=== PATIENT | female | born 1935 | race Caucasian/White ===

== ENCOUNTER 2017-05-27 12:54 | Emergency (ER) | payer MEDICARE ==
[~2017-05-27] VITALS: Ht 157.4 cm; Wt 63.5 kg
[2017-05-27 14:41] LABS: BASO # 0.1 10*3/uL (0.0-0.1); BASO % 0.4 % (0.0-1.0); EOS # 0.2 10*3/uL (0.0-0.4); EOS % 1.2 % (1.0-4.0); HEMATOCRIT 33.1 % (37.0-47.0); HEMOGLOBIN 10.5 g/dl (12.0-16.0); LYMPH # 1.2 10*3/uL (1.3-4.4); LYMPH % 7.4 % (27.0-41.0); MEAN CELL VOLUME 97.9 fl (81.0-99.0); MEAN CORPUSCULAR HGB 31.1 pg (27.0-31.0); MEAN CORPUSCULAR HGB CONC 31.7 g/dl (33.0-37.0); MEAN PLATELET VOLUME 9.3 fl (9.6-12.3); MONO # 1.3 10*3/uL (0.1-1.0); MONO % 7.9 % (3.0-9.0); NEUT # 13.2 10*3/uL (2.3-7.9); NEUT % 82.4 % (47.0-73.0); PLATELET COUNT AUTOMATED 279 10*3/uL (130-400); RED BLOOD COUNT 3.38 10*6/uL (4.10-5.10); RED CELL DISTRI WIDTH 12.9 % (0-14.5)
[2017-05-27 14:49] LABS: ACT PARTIAL THROMBO TIME 25.5 SECONDS (20.8-31.5)
[2017-05-27 14:52] LABS: BUN 23 mg/dl (7-24); CHLORIDE 107 mmol/L (98-107); POTASSIUM 3.7 mmol/L (3.5-5.1); SODIUM 141 mmol/L (136-145)
[2017-05-27 17:28] VITALS: BP 140/78
== END 2017-05-27 18:33 | disposition short-term general hospital (02) ==
LOC: ED 12:54
PROVIDERS: Emergency Medicine
DX: S72.012A Unspecified intracapsular fracture of left femur, initial encounter for closed fracture (principal); S42.412A Displaced simple supracondylar fracture without intercondylar fracture of left humerus, initial encounter for closed fracture; W18.09XA Striking against other object with subsequent fall, initial encounter; Y93.01 Activity, walking, marching and hiking; Y92.241 Library as the place of occurrence of the external cause; Y99.8 Other external cause status

== ENCOUNTER 2019-06-25 11:43 | Inpatient (IN) | payer MEDICARE, MEDICAID ==
[~2019-06-25] VITALS: Ht 157.4 cm; Wt 84.9 kg
[2019-06-25] VITALS (12 sets, daily range): BP systolic 100–134; BP diastolic 38–93
[~2019-06-25 11:43] MED LIST: PREDNISONE10 M1 PO
[2019-06-25 12:21] LABS: BASO % 0.4 % (0.0-1.0); EOS # 0.1 10*3/uL (0.0-0.4); EOS % 0.9 % (1.0-4.0); HEMATOCRIT 34.1 % (37.0-47.0); HEMOGLOBIN 10.2 g/dl (12.0-16.0); LYMPH # 1.7 10*3/uL (1.3-4.4); LYMPH % 15.7 % (27.0-41.0); MEAN CELL VOLUME 102.4 fl (81.0-99.0); MEAN CORPUSCULAR HGB 30.6 pg (27.0-31.0); MEAN CORPUSCULAR HGB CONC 29.9 g/dl (33.0-37.0); MEAN PLATELET VOLUME 9.3 fl (9.6-12.3); MONO # 1.1 10*3/uL (0.1-1.0); MONO % 10.5 % (3.0-9.0); NEUT # 7.6 10*3/uL (2.3-7.9); NEUT % 72.1 % (47.0-73.0); PLATELET COUNT AUTOMATED 323 10*3/uL (130-400); RED BLOOD COUNT 3.33 10*6/uL (4.10-5.10); RED CELL DISTRI WIDTH 13.1 % (0-14.5); WHITE BLOOD COUNT 10.5 10*3/uL (4.8-10.8)
[2019-06-25 12:32] LABS: ACT PARTIAL THROMBO TIME 30.5 SECONDS (20.0-32.1); INTERNATIONAL NORM RATIO 1.3 (2.0-3.5)
--- NOTE | 2019-06-25 12:36 | NUR ---
PT DENIES NEED TO URINE AND DECLINES TO TRY. SHE DENIES URINARY COMPLAINTS.
[2019-06-25 12:39] LABS: ALBUMIN 3.3 gm/dl (3.1-4.5); ALKALINE PHOSPHATASE 68 U/L (45-117); BUN 28 mg/dl (7-24); CHLORIDE 106 mmol/L (98-107); POTASSIUM 3.9 mmol/L (3.5-5.1); SGOT/AST 11 IU/L (3-35); SGPT/ALT 12 U/L (12-78); SODIUM 139 mmol/L (136-145); TOTAL PROTEIN 6.6 gm/dL (6.4-8.2)
[2019-06-25 12:44] LABS: TROPONIN I < 0.015 ng/ml (<0.045)
--- NOTE | 2019-06-25 12:51 | NUR ---
PULSE IMPROVED FROM 142 TO 93 ON BEDSIDE MONITOR. BP STABLE. NO CHANGE IN PT CONDITION OR COMPLAINT.
--- NOTE | 2019-06-25 13:00 | NUR ---
PT REFUSES TO DISROBE UNTIL ARRIVAL AT HER ADMISSION BED. CHECKED FOR WOUNDS, NONE OBSERVED, CLOTHING REPLACED. SOCKS REMOVED, NO WOUNDS ON FEET.
--- NOTE | 2019-06-25 13:59 | NUR ---
BP REMAINS STABLE AND WITHIN NORMAL LIMITS. PULSE HAD BEEN BETWEEN 90-100 HAS NOW RETURNED TO INITIAL RATE AROUND 140. PROVIDER MADE AWARE, VERBAL ORDER TO TITRATE CARDIZEM TO 10MG DRIP, NO SECOND BOLUS. DONE.
--- NOTE | 2019-06-25 15:00 | NUR ---
PULSE REMAINS ELEVATED DESPITE CARDIZEM TO 10MG DRIP. PROVIDER AWARE.
[2019-06-25] MEDS ORDERED: Lopressor25 MG PO (15:51)
[2019-06-25] MEDS ORDERED: LOPRESSOR100 M1 PO (15:51)
[2019-06-25] MEDS ORDERED: XOPENEX1.25 MG/3 INH (15:52)
[2019-06-25] MEDS ORDERED: BUSPAR5 MG PO (15:53)
[2019-06-25] MEDS ORDERED: COUGH SYRU100 MG/51 PO (15:53)
[2019-06-25] MEDS ORDERED: RIVASTIGMINE TAR6 M1 PO (15:54)
[2019-06-25] MEDS ORDERED: VITAMIN D32000 UNIT PO (15:54)
[2019-06-25] MEDS ORDERED: OMEPRAZOLE40 MG PO (15:54)
[2019-06-25] MEDS ORDERED: GLUCOPHAGE500 M1 PO (15:55)
[2019-06-25] MEDS ORDERED: SYNTHROID25 MCG PO (15:55)
[2019-06-25] MEDS ORDERED: NAMENDA XR28 M1 PO (15:56)
[2019-06-25] MEDS ORDERED: TYLENOL325 M2 PO (15:56)
[2019-06-25] MEDS ORDERED: OYSTER SHELL C1 EAC3 PO (15:57)
[2019-06-25] MEDS ORDERED: BUMETANIDE1 MG PO (15:57)
[2019-06-25] MEDS ORDERED: ZETIA10 MG PO (15:59)
[2019-06-25] MEDS ORDERED: XALATAN 0.005%2.5 ML OU (15:59)
[2019-06-25] MEDS ORDERED: BRIMONIDINE TART5 ML OU (16:00)
[2019-06-25] MEDS ORDERED: ELIQUIS5 M1 PO (16:00)
--- NOTE | 2019-06-25 16:15 | NUR ---
Pt has DNR-CC paperwork on chart from [facility]. Notified Dr. Tillman of this.
--- NOTE | 2019-06-25 16:20 | NUR ---
Replaced leads on pt. Pt continues to cough frequently and it is creating a lot of artifact on monitor.
--- NOTE | 2019-06-25 16:41 | NUR ---
Dr. Ibrahim notified of consult. Notified of current orders. States he will see pt in AM.
--- NOTE | 2019-06-25 17:00 | NUR ---
Pt changed out of clothes from home and place hospital gown on pt. Pt is picking at her lips and arm is across chest were cardiac leads are. Frequent artifact noted on monitor at nurse station. While in room I instructed pt not to have arm across chest resting and moving on monitor leads. On telepack in room. Aflutter noted with hr 90-120's. Will continue to monitor. Changed leads multiple times and repostioned pt.
--- NOTE | 2019-06-25 17:55 | NUR ---
Leads changed due to artifact. Able to see a good reading when remain in room with pt. Otherwist pt has arms across chest and is picking at her lips caussing artifact. I remained in room and spoke with pt while bus driver/[employer] was able to print out strip. States that rate on monitor is saying 110. States that QRS puts rate about 70-80's. I spoke with Dr. Tillman regarding this issue. I stopped the cardizem gtt at this time. States to notify cardiology and see what they recommend. I spoke with Dr. Ibrahim regarding this. States to continue gtt for 1 hour at 5 mg/hr and if heart rate continues to remain in 80's to dc gtt. Cardizem resumed at reduced rate of 5 mg/hr.
--- NOTE | 2019-06-25 18:56 | NUR ---
Spoke with environmental monitoring technician regarding heart rate. States rate is currently in 90's. Cardizem gtt remains at 5 mg/hr.
--- NOTE | 2019-06-25 19:00 | NUR ---
ASSUMED CARE FOR THIS PT AT THIS TIME. CARDIZEM GTT INFUSING AT 5ML/HR W/OUT DIFF. NO C/O VOICED AT PRESENT TIME. CALL LIGHT IN REACH.
--- NOTE | 2019-06-25 22:30 | NUR ---
CARDIZEM GTT D/C'D AT THIS TIME D/T HR IN 70'S LAST HOUR AND PT HAD SEVERAL PAUSES. PT RESTING QUIETLY IN BED.
[2019-06-26] VITALS: BP 100/55; BP 135/38
[2019-06-26 06:42] LABS: BASO # 0.1 10*3/uL (0.0-0.1); BASO % 0.6 % (0.0-1.0); EOS # 0.2 10*3/uL (0.0-0.4); EOS % 2.7 % (1.0-4.0); HEMATOCRIT 34.5 % (37.0-47.0); HEMOGLOBIN 10.3 g/dl (12.0-16.0); LYMPH # 1.2 10*3/uL (1.3-4.4); LYMPH % 13.5 % (27.0-41.0); MEAN CELL VOLUME 102.7 fl (81.0-99.0); MEAN CORPUSCULAR HGB 30.7 pg (27.0-31.0); MEAN CORPUSCULAR HGB CONC 29.9 g/dl (33.0-37.0); MEAN PLATELET VOLUME 9.4 fl (9.6-12.3); MONO # 0.9 10*3/uL (0.1-1.0); MONO % 9.7 % (3.0-9.0); NEUT # 6.4 10*3/uL (2.3-7.9); NEUT % 73.2 % (47.0-73.0); PLATELET COUNT AUTOMATED 290 10*3/uL (130-400); RED BLOOD COUNT 3.36 10*6/uL (4.10-5.10); RED CELL DISTRI WIDTH 13.1 % (0-14.5); WHITE BLOOD COUNT 8.8 10*3/uL (4.8-10.8)
[2019-06-26 06:47] LABS: CREATININE 1.09 mg/dL (0.55-1.02); PHOSPHOROUS 3.7 mg/dL (2.5-4.9); POTASSIUM 3.6 mmol/L (3.5-5.1); TOTAL PROTEIN 6.1 gm/dL (6.4-8.2)
[2019-06-26 06:53] LABS: THYROID STIM HORMONE (HS) 2.41 uIU/ml (0.358-4.75)
[2019-06-26 07:04] LABS: INTERNATIONAL NORM RATIO 1.2 (2.0-3.5)
[2019-06-26 07:40] LABS: VITAMIN D, 25-HYDROXY 22.3 ng/mL (30-100)
[2019-06-26 08:00] VITALS: BP 94/64
--- NOTE | 2019-06-26 08:20 | NUR ---
CALLED PHARMACY AND THEY WILL SEND MAG SULFATE IN TUBES FOR ME
--- NOTE | 2019-06-26 08:27 | NUR ---
Updated clinicals faxed to [facility] for review. patient is senior care and ok to return when medically stable for discharge.
--- NOTE | 2019-06-26 08:39 | NUR ---
CALLED FOR DR ROPER AND NO ANSWER. WILL TRY BACK IF I DO NOT HEAR BACK REGARDING PT HR
--- NOTE | 2019-06-26 08:47 | NUR ---
DR ZELAYA ON THE FLOOR AND I INFORMED HIM OF THE PATIENTS HR BEING IN THE 140 AND HE STATES THAT HE IS AWARE OF THIS. THE HR IS JUMPING ALL AROUND FROM 110-140 BUTHE SAID IF IT CONSISTANTLY STAYS IN THE 130-140S TO NOTIFY HIM AND WE WILL THEN GET A HOLD OF DR ELIZALDE. WILL CONTINUE TO MONITOR THE PATIENT
--- NOTE | 2019-06-26 09:00 | NUR ---
Journeyman Lineman in to talk to patient. Patient states lives at [facility] with other residents. There are no steps in the home. Physician: house doctor Pharmacy: per [facility] Home health services: none Patient's level of ADLs: MINIMAL ASSIST Patient has working utilities: all working DME: walker Follow-up physician's appointment after d/c: will be seen by the house doctor at [facility] when she returns Does patient want to access PORTAL?: no Discharge plan discussed with patient, she states she is a resident of [facility] and will return when medically stable, case management/digital media planner will follow. [facility]
--- NOTE | 2019-06-26 09:07 | NUR ---
CALLED [facility] ABOUT MAG SULFATE AND THEY STATE THEY WILL CHECK ON THE ORDER
--- NOTE | 2019-06-26 09:13 | NUR ---
DR CURTIS ON THE FLOOR AND HE STATES THAT HE PUT AN ORDER OF BUMEX AND CARDIZEM PO, TO GIVE THE BUMEX FIRST AND RECHECK PT HR IN A HALF HOUR AND IF IT DID NOT GO DOWN ANY TO THEN GIVE THE CARDIZEM.
--- NOTE | 2019-06-26 10:34 | NUR ---
Leads replaced due to excessive artifact on monitor. Reviewed event history with MT, informed cardiology and Dr. Tillman of pause @ [id number]. RN states mag has not yet been replaced, awaiting med from pharmacy. 1041- call made to pharmacy, states it was tubed - medication not present on 4E, 5E or 4NE. New bag to be sent from pharmacy. RN informed.
--- NOTE | 2019-06-26 11:05 | NUR ---
CALLED DR ZELAYA REGARDING THE PATIENT BEING RED AND IRRITATED IN THE GROIN AREA. ADDING ORDERS PER WISHES
[2019-06-26 12:00] VITALS: BP 106/56
--- NOTE | 2019-06-26 12:24 | NUR ---
PT RESTING AND HR PER CM STATES 120 SO GOING TO PROCEED AND GIVE THE CARDIZEM. WILL CONTINUE TO MONITOR THE PATIENT. CALL LIGHT WITHIN REACH.
--- NOTE | 2019-06-26 13:17 | NUR ---
HAD NURSE SWATI TRY TO START AN IV, AND WAS SUCCESSFUL, AFTER STARTING TO RUN HER MAG SULFATE THE IVS BLEW. AHSAN ATTMEPTS SO ASKED ICU TO TRY TO START AN IV. IF NOT SUCCESSFUL I WILL CALL THE DOCTOR AND INFORM HIM.
[2019-06-26 13:49] LABS: BILIRUBIN NEGATIVE (NEGATIVE); BLOOD TRACE-LYSED (NEGATIVE); CLARITY SL CLOUDY (CLEAR); COLOR YELLOW (YELLOW); GLUCOSE NEGATIVE (NEGATIVE); KETONE NEGATIVE (NEGATIVE); LEUKO ESTERASE 1+ (NEGATIVE); NITRITE NEGATIVE (NEGATIVE); PH 5.5 (5.0-9.0); UROBILINOGEN 0.2 E.U./dl (0.2-1.0)
[2019-06-26 13:56] LABS: BACTERIA 2+; EPITHELIAL CELLS TNTC; RBC 0-2 rbc/hpf (0-2); WBC 41-50 wbc/hpf (0-5)
--- NOTE | 2019-06-26 14:17 | NUR ---
CODY FROM ICU CAME TO LOOK AT THE PATIENTS ARM TO START AN IV, AND SAID THAT HE TRIED THE PREVIOUS IV AND WAS ABLE TO GET RETURN AND FLUSH IT, SO HE DID NOT HAVE TO START A NEW IV. IN PATIENT NOW AND SHE STATES THERE IS NO PAIN AT THE INSERTION SITE WHILE MEDICATION IS GOING. WILL CONTINUE TO MONITOR.
--- NOTE | 2019-06-26 14:28 | NUR ---
IN PATIENT ROOM AT THIS TIME AND TOOK PATIENT OFF OF HER BED HASSAN. PT HAS NO COMPLAINTS AT THIS TIME AND WANTS TO REST.WILL CONTINUE TO MONITOR THE PATIENT. HR IS CURRENTLY 125
[2019-06-26 16:00] VITALS: BP 86/51
--- NOTE | 2019-06-26 18:13 | NUR ---
PT HR IS 135 SO GOING TO CONTINUE ORDER TO GIVE CARDIZEM PO. WILL CONTINUE TO MONITOR
[2019-06-26 20:00] VITALS: BP 106/78
--- NOTE | 2019-06-26 22:46 | NUR ---
CALLED DR MCINTYRE AND TOLD HIM THAT THE PATIENTS BLOOD SUGAR WAS 429 AND THAT THERE WAS NO SLIDING SCALE, SO HE STATES THAT HE IS GOING TO PUT AN ORDER IN
--- NOTE | 2019-06-26 23:30 | NUR ---
REPORT RECEIVED FROM MARISELA BROWN. PT LYING IN BED WATCHING TV. VOICES NO COMPLAINTS. CALL LIGHT IN REACH.
[2019-06-27] VITALS: BP 99/48
--- NOTE | 2019-06-27 01:00 | NUR ---
PT SLEEPING AT THIS TIME. NO S/S OF DISTRESS. CALL LIGHT IN REACH.
--- NOTE | 2019-06-27 02:08 | NUR ---
ZOFRAN GIVEN PER ORDER FOR COMPLAINT OF NAUSEA. WILL MONITOR EFFECTIVENESS.
--- NOTE | 2019-06-27 04:13 | NUR ---
ZOFRAN APPEARS EFFECITVE. PT SLEEPING AT THIS TIME.
--- NOTE | 2019-06-27 06:31 | NUR ---
PT REFUSING INSULIN. STATES "I DONT USE THIS AT HOME AND IM NOT USING IT HERE" PT EDUCATED ON THE IMPORTANCE OF INSULIN. PT VERBALIZED UNDERSTANDING. PT STILL REFUSING INSULIN FOR BSG 225.
[2019-06-27 07:20] LABS: CREATININE 1.65 mg/dL (0.55-1.02); POTASSIUM 4.1 mmol/L (3.5-5.1)
[2019-06-27 07:22] LABS: TOTAL PROTEIN 6.4 gm/dL (6.4-8.2)
[2019-06-27 07:42] LABS: HEMATOCRIT 31.8 % (37.0-47.0); HEMOGLOBIN 9.8 g/dl (12.0-16.0); MEAN CELL VOLUME 100.6 fl (81.0-99.0); MEAN CORPUSCULAR HGB CONC 30.8 g/dl (33.0-37.0); MEAN PLATELET VOLUME 9.7 fl (9.6-12.3); PLATELET COUNT AUTOMATED 290 10*3/uL (130-400); RED BLOOD COUNT 3.16 10*6/uL (4.10-5.10); WHITE BLOOD COUNT 8.3 10*3/uL (4.8-10.8)
[2019-06-27 08:21] LABS: PLATELET SUFFICIENCY NORMAL (NORMAL); TOTAL CELLS COUNTED 100 #CELLS
--- NOTE | 2019-06-27 10:56 | NUR ---
PT LOPRESSOR HELD AT THIS TIME DUE TO LOW BLOOD PRESSURE. DR VELASCO AWARE AND STATES THAT WE WILL WAIT UNTIL CARDIOLOGY COMES IN TO ADDRESS PATIENT'S CARDIAC MEDICATIONS. WILL CONTINUE TO MONITOR PT HEART RATE AND BLOOD PRESSURE.
[2019-06-27 10:58] VITALS: BP 90/50
[2019-06-27 12:00] VITALS: BP 102/45
[2019-06-27 15:50] VITALS: BP 104/50
--- NOTE | 2019-06-27 16:30 | NUR ---
PT REFUSING INSULIN AT THIS TIME. PT STATES THAT SHE HAS NEVER TAKEN INSULIN BEFORE AND DOES NOT WANT TO TAKE IT NOW. EDUCATION PROVIDED REGARDING USING INSULIN WHILE SHE IS IN THE HOSPITAL. SHE STILL DENIES WANTING THE MEDICATION. WILL NOTIFY PHYSICIAN.
[2019-06-27 18:40] VITALS: BP 102/52
[2019-06-27 20:00] VITALS: BP 112/69
[2019-06-28] VITALS: BP 104/55
[2019-06-28 06:56] LABS: CREATININE 1.36 mg/dL (0.55-1.02); POTASSIUM 4.1 mmol/L (3.5-5.1)
[2019-06-28 08:00] VITALS: BP 121/64
--- NOTE | 2019-06-28 08:02 | NUR ---
24 HR chart check completed.
--- NOTE | 2019-06-28 09:00 | NUR ---
RESTING IN BED WITH NO DISTRESS NOTED. RESPIRATIONS EAS. LUNGS DIMINISHED, CLEAR. PULSE OX 97% RA. LOOSE NON-PROD COUGH. +1 PITTING BLE EDEMA. CALL LIGHT WITHIN REACH. NO VOICED COMPLAINTS. BED ALARM MAINTAINED
--- NOTE | 2019-06-28 11:00 | NUR ---
PHYSICAL THERAPY PT EVAL COMPLETED TODAY: FULL EVAL TO FOLLOW. RECOMMEND PT WHILE HERE TO ADDRESS DECREASED STRENGTH, ENDURANCE ,BALANCE AND THUS FUNCTIONAL MOBILITY. PT EVAL IS MODERATE COMPLEXITY: [id number]. D/C RECOMMENDATIONS ARE TO RETURN TO [facility] FOR SNF ON D/C TO REGAIN PLOF. THANK YOU FOR REFERRAL SRIRAM MANUEL PT
[2019-06-28 12:00] VITALS: BP 132/73
--- NOTE | 2019-06-28 12:00 | NUR ---
RESTING WITH EYES CLOSED. RESPIRATIONS EASY. BED ALARM MAINTAINED
[2019-06-28 16:00] VITALS: BP 119/60
--- NOTE | 2019-06-28 17:00 | NUR ---
AWAKE, RESTING WITH NO DISTRESS NOTED. RESPIRATIONS EASY. CALL LIGHT WITHIN REACH. BED ALARM MAINTAINED
[2019-06-28 20:00] VITALS: BP 105/55
--- NOTE | 2019-06-28 21:02 | NUR ---
NOTIFIED DR. VELASCO THAT PATIENTS COMFORT CARE PAPERWORK FROM THE NURSING STATES THAT SHE IS ACTUALLY A COMFORT CARE ARREST. HE STATED TO PLEASE CHANGE IT
--- NOTE | 2019-06-28 21:37 | NUR ---
SPOKE WITH DR. VELASCO ABOUT PATIENTS BLOOD PRESSURE AND LOPRESSOR. NOTIFIED HIM THAT SHE WAS STARTED ON CARDIZEM TODAY AND SHE TAKES 125MG LOPRESSOR BID BUT HER BLOOD PRESSURE IS 105/55. HE STATED TO HOLD THE 25MG OF LOPRESSOR AND TO GIVE THE 100MG.
[2019-06-29] VITALS: BP 119/50
--- NOTE | 2019-06-29 02:52 | NUR ---
24 HR chart check completed.
[2019-06-29 06:25] LABS: BASO % 0.1 % (0.0-1.0); HEMATOCRIT 32.4 % (37.0-47.0); HEMOGLOBIN 9.9 g/dl (12.0-16.0); LYMPH # 0.6 10*3/uL (1.3-4.4); LYMPH % 5.4 % (27.0-41.0); MEAN CELL VOLUME 99.4 fl (81.0-99.0); MEAN CORPUSCULAR HGB 30.4 pg (27.0-31.0); MEAN CORPUSCULAR HGB CONC 30.6 g/dl (33.0-37.0); MEAN PLATELET VOLUME 9.7 fl (9.6-12.3); MONO # 0.4 10*3/uL (0.1-1.0); MONO % 3.6 % (3.0-9.0); NEUT # 9.4 10*3/uL (2.3-7.9); NEUT % 89.7 % (47.0-73.0); PLATELET COUNT AUTOMATED 263 10*3/uL (130-400); RED BLOOD COUNT 3.26 10*6/uL (4.10-5.10); RED CELL DISTRI WIDTH 13.1 % (0-14.5); WHITE BLOOD COUNT 10.5 10*3/uL (4.8-10.8)
[2019-06-29 06:48] LABS: ALBUMIN 3.2 gm/dl (3.1-4.5); CREATININE 1.34 mg/dL (0.55-1.02); POTASSIUM 4.2 mmol/L (3.5-5.1); TOTAL PROTEIN 6.3 gm/dL (6.4-8.2)
--- NOTE | 2019-06-29 09:24 | NUR ---
updated clinicals faxed to [facility] for review. patient is long-term care and ok to return when medically stable.
--- NOTE | 2019-06-29 09:45 | NUR ---
PHYSICAL THERAPY Patient seen this am 1;1 for therapy visit and was resting supine in bed upon therapist arrival. Patient identified by name / as patient voices increased generalized, global weakness. Patient transfers supine to sit EOB with MOD A, tolerating static EOB sit, CGA x 1 for approx 4-5 minutes without c/o. Patient resting HR 86 bpm and increased to 95 bpm EOB sit. Patient also completed several sit to stand transfers, ARBOR END MAINSPRING FORMER/MIN A, tolerating < 30 seconds static stand each trial prior to quick onset of fatigue. Patient HR increased to 140 bpm initially then returned to baseline within 30 seconds following seated rest break between attempts. Patient also instructed on therex, completing seated B LE therex, all planes x 10 reps each to increase LE strength. Patient tolerated all treatment voicing no new c/o's and returned to supine in bed MOD A x 2. Patient remained in bed with HOB eleavted secondary to increased chest congestion with call light, tray table, telephone / bed alarm for safety. Will continue per POC as tolerated, total treatment time 23 minutes. Harris Matta, MACHINE WASHER
[2019-06-29 12:00] VITALS: BP 123/59
--- NOTE | 2019-06-29 14:10 | NUR ---
PHYSICAL THERAPY Patient seen this pm 1:1 for therapy visit and was supine in bed upon therapist arrival. Patient identified by name / and voiced no new c/o's at this time. Patient transfers supine to sit EOB with MOD A and performed several sit to stand transfers MIN/ABLE BODIED TANKERMAN. Patient able to ambulate 4-5 steps fwd/ bkwd MIN A, demonstrating unsteady step sequence and mild R knee buckle. Patient returned to supine in bed and remained with call light, tray table, telephone and bed alarm for safety. Will continue per POC as tolerated, total treatment time 13 minutes. Harris Matta, TRUCK PACKER
--- NOTE | 2019-06-29 14:20 | NUR ---
Occupational therapy orders received and OT evaluation completed in full on floor four. Patient precautions include bed alarm, fall risk, CLASS A REGIONAL TRUCK DRIVER, weakness, increased HR, and left upper extremity deformity. Per OT eval, OT recommends LTC with skilled OT services. Patient would benefit from continued OT treatment to maximize safety and independence with ADLs, mobility, and transfers. Patient complexity is moderate, [id number]. Thank you for the referral. Latoya Brasher, OTR/L
[2019-06-29 16:00] VITALS: BP 127/59
[2019-06-29 20:00] VITALS: BP 127/61
[2019-06-30] VITALS: BP 132/46; BP 146/56
--- NOTE | 2019-06-30 07:00 | NUR ---
REPORT RECEIVED FROM YOON BROWN. PT AWAKE AND LYING IN BED AT THIS TIME. PT VOICES NO COMPLAINTS, STATES "IM FEELING BETTER AND READY TO GO BACK" CALL LIGHT IN REACH
[2019-06-30 08:00] VITALS: BP 138/80
--- NOTE | 2019-06-30 08:05 | NUR ---
OT NOTE Pt was seen this A.M. 1:1 for 16 minute OT session. Upon arrival pt was supine in bed. Pt identified by name and and had no complaints at this time. Pt's resting heart rate was 87 bpm. Pt transferred supine to sit EOB with modA and use of bed rail for UE support. Pt completed multiple sit to stand transfers from bed level with Mau X 2 and use of w/w. Challenged pt's static standing tolerance needed for increased I in self care tasks and functional transfers. Pt was able to tolerate aprox 60 seconds at a time before sitting due to fatigue. Challenged pt's dynamic standing balance needed for increased I and enhanced safety, while weight shifting, crossing midline, and reaching over all planes pt was able to maintain F- standing balance requiring Mau or UE support. Pt then transferred back into bed sit to supine with maxA X 2. There she was left with call light in hand, tray table in place, and bed alarm activated for safety. Continue with rec D/C plan to return to LTC with OT services. TANJA Snow/Gabriel
--- NOTE | 2019-06-30 09:00 | NUR ---
PT RESTING AT THIS TIME. CALL LIGHT IN REACH
--- NOTE | 2019-06-30 09:51 | NUR ---
PHYSICAL THERAPY Patient seen this am 1:1 for therapy visit and was supine in bed upon therapist arrival. Patient identified by name / and voices no new c/o's at this time. OT assistant manager pt was present for observation only during CONCRETE CRAFTSMAN session as patient transfers supine to sit EOB with MOD A. Patient tolerated static EOB sit x several minutes to collect herself and then completed sit to stand transfer, INFORMATION SUPPORT PROJECT MANAGER/MIN. Patient tolerated approx 1 minute static stand x several trials, demonstrating increased fear of falling. Patient also able to take 2-3 side steps to R side prior to returning to supine in bed MAX A x 2. Patient remained in bed with call light, tray table, telephone and bed alarm for safety. Will continue per POC as tolerated, total treatment time 14 minutes. Harris Matta, CONCRETE CRAFTSMAN
--- NOTE | 2019-06-30 10:00 | NUR ---
CALLED [facility] REGARDING LOPRESSOR AND CARDIZEM. ORDERED TO CALL DR. CULP FOR INSTRUCTIONS.
--- NOTE | 2019-06-30 10:36 | NUR ---
CALLED DR. CULP'S ANSWERING SERVICE REGARDING LOPRESSOR AND CARDIZEM. AWAITING CALL BACK
--- NOTE | 2019-06-30 11:38 | NUR ---
case management visits with patient, she will return to [facility] when medically stable, she is a possible discharge today
[2019-06-30 12:00] VITALS: BP 136/53
[2019-06-30] MEDS ORDERED: PREDNISONE10 MG PO (13:57)
--- NOTE | 2019-06-30 14:34 | NUR ---
ATTEMPTED TO CALL REPORT TO [facility], NO ANSWER. WILL TRY AGAIN LATER.
--- NOTE | 2019-06-30 15:03 | NUR ---
REPORT CALLED TO [facility].
--- NOTE | 2019-06-30 15:19 | NUR ---
Discharge instructions reviewed with patient/family. Patient receptive and verbalizes understanding. Follow-up care arranged. Written instructions given to patient/family. NERY GARRIDO
--- NOTE | 2019-07-02 07:48 | NUR ---
PHYSICAL THERAPY CO-SIGN I approve of the Physical Therapy notes written above. Yudith Omer PT
--- NOTE | 2019-07-02 16:51 | NUR ---
OCCUPATIONAL THERAPY CO-SIGN I approve of the Occupational Therapy notes written above. DELVIN TREADWELL OTR/Gabriel
[2019-07-04] MEDS ORDERED: CARDIZEM CD120 M2 PO (10:27)
== END 2019-06-30 15:19 | DRG 291 ==
LOC: ED 11:43 → 4E 14:41 → EDHOLD 14:41 → 4E 15:03
PROVIDERS: Emergency Medicine; Student in an Organized Health Care Education/Training Program; ADMIT Internal Medicine
DX: I13.0 Hypertensive heart and chronic kidney disease with heart failure and stage 1 through stage 4 chronic kidney disease, or unspecified chronic kidney disease (principal); J18.9 Pneumonia, unspecified organism; I50.31 Acute diastolic (congestive) heart failure; N17.0 Acute kidney failure with tubular necrosis; I48.92 Unspecified atrial flutter; N28.9 Disorder of kidney and ureter, unspecified; E86.0 Dehydration; D53.9 Nutritional anemia, unspecified; D72.810 Lymphocytopenia; E83.51 Hypocalcemia; E83.42 Hypomagnesemia; E78.5 Hyperlipidemia, unspecified; E11.22 Type 2 diabetes mellitus with diabetic chronic kidney disease; N18.3 Chronic kidney disease, stage 3 (moderate); Z82.49 Family history of ischemic heart disease and other diseases of the circulatory system; Z79.899 Other long term (current) drug therapy; Z79.01 Long term (current) use of anticoagulants